=== PATIENT | male | born 1985 | race Caucasian/White ===

== ENCOUNTER → 2023-06-03 13:45 | Outpatient (CLI) | payer BC, SELFPAY ==
--- NOTE | ~2023-06-03 | US_ITS ---
EXAMINATION: US scrotum doppler DATE: 06/03/2023 14:10 INDICATION: Scrotal pain . Scrotal abscess one week prior. TECHNIQUE: Testicular sonogram utilizing grayscale and Doppler COMPARISON: None. FINDINGS: The right testis measures 4.5 x 3.0 x 2.3 cm. The left testis measures 4.6 x 2.7 x 2.4 cm. Symmetric normal grayscale appearance to both testes. There is normal vascular flow to both testes. The right e pididymis is normal with normal vascular flow. The left epididymis is normal with normal vascular tanya w. There is no varicocele or hydrocele. There is prominent hypoechoic coronal skin thickening. IMPRESSION: 1. Prominent diffuse scrotal skin thickening. Normal testes and epididymides with no abscess or hydr ocele. Reviewed, dictated and finalized at location A. [employer] DEVELOPER IMPRESSION: 1. Prominent diffuse scrotal skin thickening. Normal testes and epididymides w ith no abscess or hydrocele.
== END ==
PROVIDERS: PCP Urology; Visit Provider Urology
DX: N50.82 Scrotal pain (principal)
CPT/HCPCS: 76870; 93976

== ENCOUNTER 2023-07-05 12:17 | Outpatient (CLI) | payer BC, SELFPAY ==
--- NOTE | ~2023-07-05 | XR_ITS ---
Right foot Technique: AP and lateral views were obtained. Clinical History: Pain Findings: No acute fracture or dislocation is seen. Osseous alignment is anatomic. Joint spaces are p reserved without erosive or degenerative change. Soft tissues are unremarkable. Impression: Unremarkable right foot radiographs. Reviewed, dictated and finalized at [facility]. [employer] Impression: Unremarkable right foot radiographs.
== END 2023-07-05 12:18 ==
LOC: GOSHIMG 12:18
PROVIDERS: PCP Emergency Medicine; Visit Provider Emergency Medicine
DX: M79.671 Pain in right foot (principal)
CPT/HCPCS: 73620